=== PATIENT | female | born 1970 | race Asian ===

== ENCOUNTER 2018-06-19 09:15 | Emergency (ER) | payer SELFPAY ==
[~2018-06-19] VITALS: Ht 160 cm; Wt 85.0 kg
[2018-06-19 09:26] VITALS: BP 174/81
[2018-06-19] MEDS ORDERED: LIDOCAINE 1%-EPI 1:100K, 20ML ONE (09:49)
[2018-06-19] MEDS ORDERED: AZITHROMYCIN 500 MG TABLET PO ONE (10:00)
[2018-06-19] MEDS ORDERED: LIDOCAINE 1%-EPI 1:100K, 20ML INFIL ONE (10:00)
[2018-06-19] MEDS ORDERED: CEFTRIAXONE 1,000 MG IM ONE (10:00)
== END 2018-06-19 11:18 | disposition home or self-care (01) ==
LOC: ED 10:50
DX: L05.01 Pilonidal cyst with abscess (principal); E11.9 Type 2 diabetes mellitus without complications
CPT/HCPCS: 10080; 99284

== ENCOUNTER 2018-06-21 14:08 | Emergency (ER) | payer SELFPAY ==
[~2018-06-21] VITALS: Ht 160 cm; Wt 84.0 kg
[2018-06-21 14:10] VITALS: BP 150/85
== END 2018-06-21 14:46 | disposition home or self-care (01) ==
LOC: ED 14:35
DX: L02.31 Cutaneous abscess of buttock (principal)
CPT/HCPCS: 99282